=== PATIENT | male | born 1980 | race Hispanic/Latino ===

== ENCOUNTER 2023-08-29 11:38 | Emergency (ER) | payer SELFPAY ==
[2023-08-29 11:41] VITALS: BP 132/80
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
== END 2023-08-29 13:03 ==
LOC: EMR 11:38
PROVIDERS: EMERGENCY PHYSICIAN Emergency Medicine
DX: S00.03XA Contusion of scalp, initial encounter (principal); S80.11XA Contusion of right lower leg, initial encounter; Y04.0XXA Assault by unarmed brawl or fight, initial encounter
CPT/HCPCS: 99282